=== PATIENT | male | born 1965 | race Caucasian/White ===

== ENCOUNTER 2018-01-10 19:00 | Emergency (ER) | payer OTHER ==
[~2018-01-10] VITALS: Ht 180.3 cm; Wt 98.0 kg
[2018-01-10 19:07] VITALS: Ht 180.3 cm; Wt 98.0 kg
[2018-01-10 19:26] VITALS: BP 128/74
== END 2018-01-10 19:26 | disposition home or self-care (01) ==
LOC: ED 19:00
DX: J30.9 Allergic rhinitis, unspecified (principal)